=== PATIENT | female | born 1995 | race African-American/Black ===

== ENCOUNTER 2017-09-02 18:56 | Emergency (ER) | payer SELFPAY ==
[2017-09-02 19:36] LABS: Bilirubin Negative (Negative); Blood, Urine Negative (Negative); Clarity CLEAR (Clear); Glucose, Urine (Dipstick) Negative (Negative); Leukocyte Negative (Negative); Nitrite Negative (Negative); Protein, Urine (Dipstick) Negative (Neg-Trace); Specific Gravity, Urine 1.006 (1.002-1.036); Urobilinogen 0.2 mg/dL (0.2-1.0); pH, Urine 6.5 (5.0-9.0)
[2017-09-02 19:39] LABS: #Basophils 0.1 thou/uL (0.0-0.2); #Eosinphils 0.1 thou/uL (0.0-0.7); #Lymphocytes 2.1 thou/uL (1.20-3.40); #Monocytes 0.6 thou/uL (0.11-0.59); #Neutrophils 2.7 thou/uL (1.40-6.50); %Basophils 1.4 % (0.0-1.0); %Eosinophils 1.7 % (0.0-10.0); %Lymphocytes 37.7 % (28.0-48.0); %Neutrophils 49.2 % (31.0-61.0); Hemoglobin 10.6 g/dL (12.0-16.0); Mean Corpuscular HGB CONC 34.3 g/dL (32.0-36.0); Mean Corpuscular Hemoglobin 33.3 pg (25.0-35.0); Mean Corpuscular Volume 97.1 fl (77.0-87.0); Mean Platelet Volume 8.9 fL (7.4-10.4); Platelet Count 249 thou/uL (130-400); RBC Distribution Width 14.5 % (11.5-14.5); Red Blood Cell (RBC) Count 3.18 mill/uL (4.00-5.20); White Blood Cell (WBC) Count 5.5 thou/uL (4.8-10.8)
[2017-09-02 19:47] LABS: Pregnancy Test - Urine (BHCG) Negative (Negative); Pregu Control Background? CLEAR/WHITE (CLR/WHITE); Pregu Control Bar Appear? YES (CONTROL BAR); Specific Gravity 1.006 (1.002-1.036)
[2017-09-02 19:59] LABS: ALT (SGPT) 13 U/L (8-55); AST (SGOT) 16 U/L (5-34); Albumin 4.1 g/dL (3.5-5.0); Alkaline Phosphatase 85 U/L (40-150); Anion Gap 11 mmol/L (10-20); BUN (Urea Nitrogen) 16 mg/dL (7.0-18.7); Bilirubin, Total 0.4 mg/dL (0.2-1.2); Calc. Creatinine Clearance 0 mL/min (70-130); Calcium 9.5 mg/dL (7.8-10.44); Carbon Dioxide 25 mmol/L (22-29); Chloride 104 mmol/L (98-107); Estimated GFR-MDRD 81; Globulin 3.7 g/dL (2.4-3.5); Glucose 98 mg/dL (70-105); Lipase 24 U/L (8-78); Potassium 3.7 mmol/L (3.5-5.1); Protein, Total 7.8 g/dL (6.0-8.3); Sodium 136 mmol/L (136-145)
== END 2017-09-02 20:28 | disposition home or self-care (01) ==
LOC: ERS 18:56
DX: R10.9 Unspecified abdominal pain (principal)
CPT/HCPCS: 36415; 80053; 81003; 81025; 83690; 84702; 85025; 99284

== ENCOUNTER 2018-01-05 00:23 | Emergency (ER) | payer MEDICAID, SELFPAY ==
[2018-01-05 01:31] LABS: Pregnancy Test - Urine (BHCG) POSITIVE (Negative); Pregu Control Background? CLEAR/WHITE (CLR/WHITE); Pregu Control Bar Appear? YES (CONTROL BAR)
[2018-01-05 01:34] LABS: Bilirubin Negative (Negative); Blood, Urine Trace (Negative); Clarity CLOUDY (Clear); Glucose, Urine (Dipstick) Negative (Negative); Leukocyte Large (Negative); Nitrite Negative (Negative); Protein, Urine (Dipstick) Negative (Neg-Trace); Specific Gravity, Urine 1.018 (1.002-1.036); pH, Urine 6.5 (5.0-9.0)
[2018-01-05 01:35] LABS: Bacteria/HPF None Seen HPF (None Seen); Hyaline Casts/LPF 0-3 HYALINE CAST LPF (0-3 Hyaline); Pathc Cast-AUWi Flag 0.29 (0-2.49); RBC/HPF 0-3 HPF (0-3); WBC/HPF 21-50 HPF (0-3)
[2018-01-05 01:40] LABS: Specific Gravity 1.018 (1.002-1.036)
== END 2018-01-05 01:50 | disposition home or self-care (01) ==
LOC: ERS 00:23
DX: O9A.211 Injury, poisoning and certain other consequences of external causes complicating pregnancy, first trimester (principal); S30.1XXA Contusion of abdominal wall, initial encounter; O23.41 Unspecified infection of urinary tract in pregnancy, first trimester; Z3A.10 10 weeks gestation of pregnancy; W01.0XXA Fall on same level from slipping, tripping and stumbling without subsequent striking against object, initial encounter
CPT/HCPCS: 81003; 81015; 81025; 87086

== ENCOUNTER 2018-01-23 12:18 | Emergency (ER) | payer MEDICAID, OTHER ==
[2018-01-23 12:39] LABS: Bilirubin Negative (Negative); Blood, Urine Negative (Negative); Clarity CLOUDY (Clear); Glucose, Urine (Dipstick) Negative (Negative); Leukocyte Large (Negative); Nitrite Positive (Negative); Protein, Urine (Dipstick) Negative (Neg-Trace)
[2018-01-23 12:41] LABS: Bacteria/HPF None Seen HPF (None Seen); Hyaline Casts/LPF 0-3 HYALINE CAST LPF (0-3 Hyaline); Pathc Cast-AUWi Flag 0.87 (0-2.49)
--- NOTE | 2018-01-23 13:26 | ULT ---
TRANSABDOMINAL PELVIC ULTRASOUND: INDICATIONS: Pelvic pain. COMPARISON: 10/26/2016 TECHNIQUE: Villagomez-scale, color Doppler, and duplex ultrasound images were obtained of the pelvis. FINDINGS: The uterus measures 6.8 x 3.5 x 4.4 cm. The endometrial stripe measures 7 mm. The right ovary measures 2.2 x 1.8 x 1.4 cm. The left ovary measures 3 x 2.4 x 2.2 cm. There is nor mal flow to both ovaries. No free fluid is evident. IMPRESSION: No acute sonographic abnormality is seen. POS: [facility]
[2018-01-25 01:34] LABS: Chlamydia by PCR Not Detected (NotDetected); GC by PCR Not Detected (NotDetected)
== END 2018-01-23 13:41 | disposition home or self-care (01) ==
LOC: ERS 12:18
DX: O23.11 Infections of bladder in pregnancy, first trimester (principal); N30.00 Acute cystitis without hematuria; Z3A.12 12 weeks gestation of pregnancy
CPT/HCPCS: 36415; 76856; 81003; 81015; 84702; 87086; 87480; 87491; 87510; 87591; 87660; 93976

== ENCOUNTER 2018-03-07 14:12 | Emergency (ER) | payer OTHER ==
[2018-03-07 15:10] LABS: Bilirubin Negative (Negative); Blood, Urine Negative (Negative); Clarity CLOUDY (Clear); Glucose, Urine (Dipstick) Negative (Negative); Leukocyte Moderate (Negative); Nitrite Negative (Negative); Protein, Urine (Dipstick) Negative (Neg-Trace); Specific Gravity, Urine 1.024 (1.002-1.036); pH, Urine 6.5 (5.0-9.0)
[2018-03-07 15:12] LABS: Bacteria/HPF Rare-Few HPF (None Seen)
[2018-03-07 15:13] LABS: Pathc Cast-AUWi Flag 3.34 (0-2.49)
[2018-03-07 15:17] LABS: Mean Corpuscular HGB CONC 36.1 g/dL (32.0-36.0); Mean Corpuscular Hemoglobin 36.8 pg (27.0-31.0); RBC Distribution Width 13.2 % (11.5-14.5); Red Blood Cell (RBC) Count 2.72 mill/uL (4.20-5.40); White Blood Cell (WBC) Count 7.5 thou/uL (4.8-10.8)
[2018-03-07] MEDS ORDERED: Ondansetron HCl/PF 4 MG/2 ML Vial ONE (15:17)
[2018-03-07 15:19] LABS: Hyaline Casts/LPF 0-3 HYALINE CAST LPF (0-3 Hyaline); Manual Microscopic Reviewed? No Path Casts Seen; RBC/HPF 0-3 HPF (0-3)
[2018-03-07 15:33] LABS: #Eosinphils 0.1 thou/uL (0.0-0.7); #Lymphocytes 1.8 thou/uL (1.20-3.40); #Monocytes 0.5 thou/uL (0.11-0.59); %Basophils 0.6 % (0.0-1.0); %Eosinophils 1.3 % (0.0-10.0); %Lymphocytes 24.6 % (21.0-51.0); %Monocytes 6.1 % (0.0-10.0); %Neutrophils 67.5 % (42.0-75.0); PLT Morphology Comment Appears Adequate; Platelet Count 171 thou/uL (130-400)
[2018-03-07 15:41] LABS: ALT (SGPT) 13 U/L (8-55); AST (SGOT) 31 U/L (5-34); Albumin 3.8 g/dL (3.5-5.0); Alkaline Phosphatase 63 U/L (40-150); Anion Gap 15 mmol/L (10-20); BUN (Urea Nitrogen) 10 mg/dL (7.0-18.7); Bilirubin, Total 0.4 mg/dL (0.2-1.2); Calc. Creatinine Clearance 0 mL/min (70-130); Calcium 9.9 mg/dL (7.8-10.44); Carbon Dioxide 19 mmol/L (22-29); Chloride 104 mmol/L (98-107); Estimated GFR-MDRD Greater than 90; Glucose 69 mg/dL (70-105); Lipase 23 U/L (8-78); Potassium 4.7 mmol/L (3.5-5.1); Protein, Total 7.8 g/dL (6.0-8.3); Sodium 133 mmol/L (136-145)
[2018-03-07 15:50] LABS: BHCG - Serum POSITIVE (NEGATIVE); Pregs Control Background? CLEAR/WHITE (CLR/WHITE); Pregs Control Bar Appear? YES (CONTROL BAR)
--- NOTE | 2018-03-07 17:29 | ULT ---
LIMITED OB ULTRASOUND: 03/07/18 HISTORY: Abdominal pain. FINDINGS: A single live intrauterine transverse gestation is seen with measurements corresponding to an estimat ed gestational age of 18 weeks, 2 days and CHRISTOPH at 08/06/18. The estimated weight measures 242 gr ams or 9 oz. measurements are as follows: BPD 3.99 cm 18 weeks, 1 day HC 15.54 cm 18 weeks, 3 days AC 12.50 cm 18 weeks, 1 day FL 2.94 cm 18 weeks, 6 days. heart rate measures 157 beats per minute. Placenta is anteriorly located without evidence of pl acenta previa. Amniotic fluid is adequate. IMPRESSION: Single live IUP of 18 weeks, 2 days estimated gestational age and CHRISTOPH at 08/06/18. POS: [facility]
== END 2018-03-07 17:26 | disposition home or self-care (01) ==
LOC: ERS 14:12
DX: O23.42 Unspecified infection of urinary tract in pregnancy, second trimester (principal); O21.9 Vomiting of pregnancy, unspecified; Z3A.17 17 weeks gestation of pregnancy
CPT/HCPCS: 36415; 76815; 80053; 81003; 81015; 83690; 84702; 84703; 85025; 86900; 86901; 96361; 96374; J2405

== ENCOUNTER → 2018-05-02 | Day surgery (SDC) | payer OTHER ==
[2018-05-02 12:53] VITALS: BMI 27.6
--- NOTE | 2018-05-02 13:58 | PDOC.LDHP ---
Labor and Delivery H&P Chief complaint: other (Here for pink discharge after intercourse which occured last night.) HPI: -EGA = 26 weeks 3 days -Pt of Dr. Barr -EDC = August 05 23 year old AA at 26 weeks 3 days, had sex last night, now with pink discharge. No abdominal trauma, no gush of fluid, good movement. Otherwise , ROS negative. Current gestational age (weeks): 26 (3 days) Dating criteria: last menstrual period Grav: 1 Para: 0 Current complications: none Abnormal US findings: No Current medications: pre- vitamins Previous surgical history: none, other Allergies/Adverse Reactions: Allergies Allergy/AdvReac Type Severity Reaction Status Date / Time No Known Allergies Allergy Verified 05/02/18 12:50 Social history: none - Physical Exam Vital signs reviewed and normal: yes General: NAD Heart: RRR Lungs: CTAB Abdomen: gravid - Vaginal Exam cm dilated: 0 Effacement: 0% Station: -3 - Assessment Post-coital spotting at 26 weeks, primagravida - Plan Plan: observation in L&D (Sono for cervical length check, no evidence of labor. FFN not qualified as sex within 24 hours. If cervical length greater than 2.5, ok for release)
--- NOTE | 2018-05-02 15:04 | PDOC.EVN ---
Event Note - Event Note Event Note: Lab check: Cervical length returned: 3.3 cm. Although transabdominal, no evidence of funneling and closed on exam. Okay for discharge
--- NOTE | 2018-05-02 15:32 | ULT ---
LIMITED OB ULTRASOUND: 05/02/18 PROVIDED CLINICAL HISTORY: Assess cervical length. FINDINGS: Comparison 03/07/18. Limited sonographic interrogation of the region of the cervix was performed. Cervical length is appro ximately 3.3 cm. IMPRESSION: Cervical length is approximately 3.3 cm. POS: [facility]
== END ==
LOC: L&D/OP 12:07
PROVIDERS: ATTEND Obstetrics & Gynecology
DX: O26.852 Spotting complicating pregnancy, second trimester (principal); Z3A.26 26 weeks gestation of pregnancy
CPT/HCPCS: 76815

== ENCOUNTER 2018-06-17 02:05 | Day surgery (SDC) | payer OTHER ==
[2018-06-17 02:46] VITALS: BP 124/72; TEMP 98.1; BMI 28.6
--- NOTE | 2018-06-17 02:50 | PDOC.FPROB ---
FMR OB H&P: HPI - History of Present Illness Chief Complaint: abdominal pain Indentification: 23 y/o @ 32w6d by LMP History of Present Illness: Presents due to LLQ abdominal pain that started about two hours ago and is causing numbness down her L leg whenever she gets the pain. She describes it as a cramping pain that comes and goes every 45 seconds or so. She endorses some nausea yesterday and urinary urgency, but denies any dysuria, or increased urinary frequency. She denies any fevers, chills, or flank pain. She denies LOF , vaginal bleeding, vaginal d/c, ctx, and endorses good movement. She denies any h/o abdominal trauma. Primary Care Physician: Dr. Barr FMR OB H&P: Current - Care : 2 Para: 0010 Gestational age: 32w6d Due date: 08/06/18 Dating Criteria: LMP - OB Labs Blood type: O RH: positive Antibody Screen: negative HIV: negative RPR: negative HepBsAg: negative Rubella: immune Gonorrhea: negative Chlamydia: negative 1 hour gtt: 112 GBS: unknown FMR OB H&P: History - Past Medical History PMH: None - OB History OB History: Prior 1st trimester SAB - [employer] History [employer] History: No hx of STI's - Surgical History Sx History: None - Social History Social History: Denies tobacco, EtOH, or drug use - Family History Family History: None FMR OB H&P: Medications - Current Home Medications: Medication Instructions Recorded Confirmed Type Vit Calc,Iron,Folic 1 each PO DAILY 05/02/18 06/17/18 History [ Vitamins] Allergies/Adverse Reactions: Allergies Allergy/AdvReac Type Severity Reaction Status Date / Time No Known Allergies Allergy Verified 05/02/18 12:50 FMR OB H&P: ROS - Review of Systems General: denies: fever/chills, recent trauma Eyes: denies: vision changes, scotomas ENT: denies: nasal congestion, rhinorrhea, sore throat Cardiovascular: denies: chest pain, edema Gastrointestinal: reports: abdominal pain, nausea. denies: vomiting, diarrhea, constipation Genitourinary (Female): reports: hesitancy. denies: dysuria, hematuria, vaginal discharge, vaginal bleeding, contractions Musculoskeletal: reports: pain (low back pain). denies: tenderness Neurologic: reports: numbness (left leg numbness). denies: weakness Integumentary: denies: rash, lesions Psychological: denies: depression, anxiety FMR OB H&P: Vital Signs - Maternal Vital signs: Vital Signs - First Documented Temp Pulse Resp BP 98.1 F 77 16 124/72 06/17/18 02:28 06/17/18 02:28 06/17/18 02:28 06/17/18 02:28 - Heart Tones Baseline: 140 Variability: moderate Acceleration: absent Deceleration: absent Category: category 1 [place] contractions every: Scarce FMR OB H&P: Physical Exam - Physical Exam General: NAD, awake, alert and oriented HEENT: MMM, conjunctiva clear Neck: supple, FROM Heart: RRR, normal S1/S2, pulses present, no edema General: CTAB, no respiratory distress, no wheezing Abdomen: soft, gravid Deviation from normal: TTP in suprapubic and LLQ, no rebound or guarding Musculoskeletal: normal gait and station, pulses present Neurological: cranial nerves II through XII intact, sensation to pain,touch and proprioception grossly normal, no focal deficit Skin: good tugor, capillary refill <2 seconds Lymphatic: no unusual bruising or bleeding, no LAD Psychiatric: intact recent and remote memory, good judgement and insight, normal mood and affect FMR OB H&P: A/P - Problem List (1) Meralgia paresthetica of left side Current Visit: Yes Status: Acute Code(s): G57.12 - MERALGIA PARESTHETICA, LEFT LOWER LIMB Assessment and Plan: Patient wearing pants that constrict the lateral femoral cutaneous nerve on the left side. No signs of labor No signs of systemic illness -d/c home -Gave return precautions -Counseled that she can use tylenol and on wearing clothes that do not constrict that area -f/u with PCP in 3 days to monitor for improvement Disposition: d/c home Discussion: Date/Time: 06/17/18246 This H&P was discussed with Dr. Marquez who agree with the above documentation and plan. Signature: Viola Kearns MD
[2018-06-17 03:28] LABS: Bilirubin Negative (Negative); Blood, Urine Negative (Negative); Clarity CLEAR (Clear); Glucose, Urine (Dipstick) Negative (Negative); Leukocyte Moderate (Negative); Nitrite Negative (Negative); Protein, Urine (Dipstick) Negative (Neg-Trace); Specific Gravity, Urine 1.013 (1.002-1.036)
[2018-06-17 03:31] LABS: Bacteria/HPF None Seen HPF (None Seen); Hyaline Casts/LPF 0-3 HYALINE CAST LPF (0-3 Hyaline); Pathc Cast-AUWi Flag 0.43 (0-2.49); RBC/HPF 0-3 HPF (0-3)
== END 2018-06-17 03:15 | disposition home or self-care (01) ==
LOC: L&D/OP 02:05
PROVIDERS: ATTEND Obstetrics & Gynecology
DX: O99.353 Diseases of the nervous system complicating pregnancy, third trimester (principal); G57.12 Meralgia paresthetica, left lower limb; O99.89 Other specified diseases and conditions complicating pregnancy, childbirth and the puerperium; R10.32 Left lower quadrant pain; Z3A.32 32 weeks gestation of pregnancy; Z79.899 Other long term (current) drug therapy
CPT/HCPCS: 81001; 99282

== ENCOUNTER 2018-07-21 01:06 | Emergency (ER) | payer OTHER ==
[2018-07-21] MEDS ORDERED: Acetaminophen 500 MG TAB ONE (01:23)
[2018-07-21 01:52] LABS: Bilirubin Negative (Negative); Blood, Urine Negative (Negative); Clarity CLOUDY (Clear); Glucose, Urine (Dipstick) Negative (Negative); Leukocyte Moderate (Negative); Nitrite Negative (Negative); Protein, Urine (Dipstick) Negative (Neg-Trace); Specific Gravity, Urine 1.022 (1.002-1.036)
[2018-07-21 01:54] LABS: Bacteria/HPF None Seen HPF (None Seen); Pathc Cast-AUWi Flag 0.58 (0-2.49)
[2018-07-21 02:02] LABS: Crystals/HPF 1+ AMORPH PHOS HPF (Negative); Hyaline Casts/LPF NONE SEEN LPF (0-3 Hyaline); Renal Epithelial None Seen HPF (0-3); Transitional Epithelial NONE SEEN HPF (0-3)
== END 2018-07-21 03:14 | disposition home or self-care (01) ==
LOC: ERS 01:06
DX: O99.89 Other specified diseases and conditions complicating pregnancy, childbirth and the puerperium (principal); R50.9 Fever, unspecified
CPT/HCPCS: 81003; 81015; 87081; 87086; 87430; 87804; 99283

== ENCOUNTER 2018-07-31 23:48 | Inpatient (IN) | payer OTHER ==
[2018-08-01 00:02] VITALS: BMI 31.6
[2018-08-01] MEDS: Lactated Ringer's 1,000 ML IV SCH ×3 (00:10→09:53)
[2018-08-01] MEDS ORDERED: HYDROcodone/Acetaminophen 5/325 mg Tablet PO PRN ×2 (01:08)
[2018-08-01] MEDS ORDERED: Ibuprofen 800 MG TAB PO PRN (01:08)
[2018-08-01] MEDS ORDERED: Lidocaine 1% (PF) 30 ML VIAL SC PRN (01:08)
[2018-08-01] MEDS ORDERED: Acetaminophen 500 MG TAB PO PRN (01:08)
[2018-08-01] MEDS ORDERED: Meperidine HCl/PF 25 MG/ML VIAL IM/IV PRN (01:08)
[2018-08-01] MEDS ORDERED: Ondansetron PF 4 MG/2 ML Vial IVP PRN ×3 (01:08→05:57)
[2018-08-01] MEDS ORDERED: Promethazine HCl 25 MG/ML VIAL IM PRN ×2 (01:08→03:02)
[2018-08-01] MEDS ORDERED: Butorphanol Tartrate 1 MG/ML VIAL SLOW IVP PRN (01:08)
[2018-08-01] MEDS ORDERED: NS / Oxytocin 40 units/1000ml 1,000 ML IV PRN (01:08)
--- NOTE | 2018-08-01 01:14 | PDOC.LDHP ---
Labor and Delivery H&P Chief complaint: loss of fluid HPI: 23 yo BF c/o SROM with meconium at home at 2230, now c/o UCs. Current gestational age (weeks): 39 Due date: 08/06/18 Dating criteria: last menstrual period Grav: 1 Para: 0 OB History Details: PNC with Dr. Barr, denies complications. Current complications: none Abnormal US findings: No Past Medical History: None Current medications: pre- vitamins Previous surgical history: none Allergies/Adverse Reactions: Allergies Allergy/AdvReac Type Severity Reaction Status Date / Time No Known Allergies Allergy Verified 05/02/18 12:50 Social history: none - Physical Exam Vital signs reviewed and normal: yes General: resting Lungs: nonlabored breathing Abdomen: gravid Extremeties: trace edema FHT: variable decelerations [place] contractions every: UCs q 3-5 mins. - Vaginal Exam cm dilated: 1 Effacement: 50% Station: -2 - OB Labs Blood type: O RH: positive Antibody Screen: negative HIV: negative RPR: negative HEPSAg: negative 1 hour GCT: negative GBS: negative Rubella: immune - Assessment L&D Assessment: term rupture in membranes (light mec noted, inital late appearing decels seen.) - Plan Plan: admit to L&D (IV bolus on l side, O2 by FM, and observe closely, Dr. mahan asks Hospitalist to manage.), informed consent obtained
[2018-08-01] MEDS ORDERED: NS w/ Oxytocin 10 units 500 ML IV SCH (01:15)
[2018-08-01] MEDS ORDERED: Lactated Ringer's 1,000 ML IV SCH (01:15)
[2018-08-01 01:37] LABS: Hemoglobin 11.1 g/dL (12.0-16.0); Mean Corpuscular HGB CONC 36.4 g/dL (32.0-36.0); Mean Corpuscular Hemoglobin 37.8 pg (27.0-31.0); Mean Platelet Volume 10.1 fL (7.4-10.4); Platelet Count 211 thou/uL (130-400); RBC Distribution Width 12.5 % (11.5-14.5); Red Blood Cell (RBC) Count 2.94 mill/uL (4.20-5.40); White Blood Cell (WBC) Count 8.4 thou/uL (4.8-10.8)
--- NOTE | 2018-08-01 02:06 | PDOC.EVN ---
Event Note - Event Note Event Note: Late appearing decels persist despite O2 by FM, fluid bolus and L lateral positioning. UCs q 5 mins seen. In view of decelerations in face of meconium stained fluid and remote from delivery, recommend proceeding with 1* C/s. Consent on chart.
[2018-08-01] MEDS ORDERED: Bicitra 30 ML UDCUP PO SCH (02:15)
[2018-08-01] MEDS ORDERED: CEFAZOLIN 2 GM/50 ML BAG IVPB SCH (02:15)
[2018-08-01 02:17] LABS: HBSAg Index 0.22 S/CO (0-0.99); Hep B Surf Ag Non-Reactive S/CO (NonReactive)
[2018-08-01] MEDS ORDERED: Eucerin (Mineral Oil/Petrolatum,White) 30 gm Jar TOP PRN (03:02)
[2018-08-01] MEDS ORDERED: Naloxone HCl 0.4 mg/ml Vial IVP PRN ×2 (03:02)
[2018-08-01] MEDS ORDERED: L&D-Morphine 4 MG/ML VIAL SLOW IVP PRN (03:02)
[2018-08-01] MEDS ORDERED: HYDROmorphone 2 MG/ML VIAL SLOW IVP PRN (03:02)
[2018-08-01] MEDS ORDERED: Meperidine HCl/PF 25 MG/ML VIAL SLOW IVP PRN (03:02)
[2018-08-01] MEDS ORDERED: Promethazine HCl 25 MG SUPP PR PRN (03:02)
[2018-08-01] MEDS ORDERED: Ondansetron HCl/PF 4 MG/2 ML Vial IVP PRN (03:02)
[2018-08-01] MEDS ORDERED: diphenhydrAMINE 50 MG/ML VIAL IVP PRN (03:02)
[2018-08-01] MEDS ORDERED: Ketorolac Tromethamine 30 MG/ML VIAL IVP PRN ×2 (03:02→06:42)
[2018-08-01] MEDS ORDERED: Communication Order-Pharmacy FS SCH (03:15)
[2018-08-01] MEDS ORDERED: Ketorolac Tromethamine 30 MG/ML VIAL IVP SCH (03:15)
[2018-08-01 03:28] LABS: Actual Bicarbonate (HCO3a) 25.4 mEq/L (22-28); Base Excess (BEa) -4.7 mEq/L (-2.0 to +3.0)
[2018-08-01 03:29] LABS: Actual Bicarbonate (HCO3v) 23 mEq/L (22-28); pH (Cord, venous) 7.24 (7.32-7.43)
--- NOTE | 2018-08-01 04:36 | OP ---
DATE OF PROCEDURE: 08/01/2018 PROCEDURE: Primary low segment transverse section via Pfannenstiel incision. PREOPERATIVE DIAGNOSIS: 1. A 39-nine week intrauterine . 2. Meconium-stained fluid. 3. Non-reassuring heart tones. POSTOPERATIVE DIAGNOSIS: 1. 39 week intrauterine . 2. Meconium-stained fluid. 3. Non-reassuring heart tones. FINDINGS: 1. Viable male , weight 2591 grams, vertex presentation with Apgars of 8 and 9. 2. Meconium-stained fluid. 3. Art. cord PH= 7.18 4. Normal uterus, tubes, and ovaries bilaterally. SURGEON: Gabriel Toribio MD. LOAN ASSOCIATE SURGEON: Brenton Parra DO ANESTHESIA: Spinal. ESTIMATED BLOOD LOSS: 600 mL, QBL pending. PROPHYLAXIS: Ancef 2 g prior to incision. TECHNIQUE IN DETAIL: After good spinal anesthesia was achieved, the patient was prepped and draped in usual sterile fashion in the supine position with leftward tilt. A transverse incision was made two fingerbreadths above the symphysis and the abdomen was entered in layers. The uterus was then identified and the Steffen retractor was placed. A transverse incision was made across the lower uterine segment. An entry into the uterine cavity demonstrated moderately stained meconium fluid. The fetus was found in the cephalic presentation, was delivered with fundal pressure. The nasopharynx was bulb suctioned and the remainder of the baby was then delivered. The cord was clamped and cut and the baby was taken to the team in attendance. Cord blood and cord gases were then obtained. The placenta was manually removed. The uterus was curetted with a dry lap to remove all remaining placental fragments. Closure of the uterine incision was begun using a running locking suture of Monocryl. Good hemostasis occurred with this closure. The uterus was replaced in the abdominal cavity and the pelvic gutters were cleared of all clots and debris. The retractor was then removed. The urine incision was again reviewed and was noted to be hemostatic. The omentum was straightened and the fascia was closed using two sutures of PDS brought laterally to the midline in an alternating running locking fashion. The subcutaneous tissue was thoroughly irrigated and made dry using Bovie coagulation technique. The skin was closed with metal manuelito. Sponge, lap, needle counts were correct. A pressure dressing was placed across the wound. Sponge, lap, and needle counts were correct. The patient was taken to recovery room in good condition. Job ID: [id number] [facility]
[2018-08-01] MEDS ORDERED: Lanolin Ointment 7 GM TUBE TOP PRN (05:57)
[2018-08-01] MEDS ORDERED: Acetaminophen 325 MG TAB PO PRN (05:57)
[2018-08-01] MEDS ORDERED: Adacel (T-DAP) 0.5 ML SYRINGE IM ONE (05:57)
[2018-08-01] MEDS ORDERED: Ibuprofen 800 MG TAB PO SCH (06:00)
[2018-08-01 06:14] LABS: Syphilis Antibody Nonreactive (Nonreactive); Syphilis Antibody Index 0.07 S/CO (<1.00 Non-Reactive)
[2018-08-01] MEDS: Prenatal Vitamin 1 TAB PO SCH (09:06)
[2018-08-01] MEDS: Docusate Calcium (SURFAK) 240 MG CAP PO SCH ×2 (09:06→21:38)
[2018-08-01] MEDS ORDERED: Ondansetron PF 4 MG/2 ML Vial ONE (14:19)
[2018-08-01] MEDS ORDERED: Dexamethasone 20 MG/5 ML VIAL ONE (14:19)
[2018-08-01] MEDS ORDERED: Ketorolac Tromethamine 30 MG/ML VIAL ONE (14:19)
[2018-08-01] MEDS: Ibuprofen 800 MG TAB PO SCH (21:05)
[2018-08-01] MEDS: HYDROcodone/Acetaminophen 5/325 mg Tablet PO PRN (21:06)
[2018-08-01] MEDS ORDERED: Sodium Chloride 0.9% 10 ML ONE ×2 (21:17→21:41)
[2018-08-01] MEDS: Simethicone Chewable 80 MG TAB PO PRN (21:18)
[2018-08-01] MEDS: Naloxone HCl 0.4 mg/ml Vial IV PRN ×3 (21:18→21:54)
[2018-08-02] MEDS: Lactated Ringer's 1,000 ML IV SCH ×3 (04:04→16:33)
[2018-08-02] MEDS: Ibuprofen 800 MG TAB PO SCH ×3 (05:17→21:10)
[2018-08-02] MEDS ORDERED: Ibuprofen 800 MG TAB PO SCH (06:00)
[2018-08-02] MEDS: HYDROcodone/Acetaminophen 5/325 mg Tablet PO PRN ×4 (06:06→21:10)
[2018-08-02 06:19] LABS: Mean Corpuscular HGB CONC 36.2 g/dL (32.0-36.0); Mean Corpuscular Hemoglobin 38.1 pg (27.0-31.0); Mean Platelet Volume 10.2 fL (7.4-10.4); Platelet Count 153 thou/uL (130-400); RBC Distribution Width 12.5 % (11.5-14.5); Red Blood Cell (RBC) Count 2.36 mill/uL (4.20-5.40); White Blood Cell (WBC) Count 9.7 thou/uL (4.8-10.8)
--- NOTE | 2018-08-02 08:55 | PRG ---
DATE OF SERVICE: 08/02/2018 SUBJECTIVE: The patient is postoperative day 1, status post a primary for non-reassuring heart tones. The patient reports today that she is tolerating p.o., having good pain control, decreased lochia, and is ambulating on her own and is able to void on her own. OBJECTIVE: VITAL SIGNS: Today, blood pressure is 110/57, temperature 98.2, pulse of 79, respiratory rate of 18. GENERAL: She appears to be in no acute distress. She is alert, oriented, cooperative, and pleasant to interact with. HEAD: Normocephalic, atraumatic. ABDOMEN: Appropriately tender. Incision is clean, dry, and intact with manuelito. LABORATORY DATA: Her postop hemoglobin dropped from 11.1 to 9.0, hematocrit from 30.5 to 24.9, and platelets from 211,000 to 153,000. ASSESSMENT AND PLAN: The patient is postop day 1, status post a primary for non-reassuring heart tones at term. We will continue postoperative care in the hospital for the next 1 to 2 days. Job ID: [id number]
[2018-08-02] MEDS: Docusate Calcium (SURFAK) 240 MG CAP PO SCH ×2 (09:41→21:10)
[2018-08-02] MEDS: Prenatal Vitamin 1 TAB PO SCH (09:42)
[2018-08-02] MEDS: Simethicone Chewable 80 MG TAB PO PRN (18:37)
[2018-08-02] MEDS ORDERED: HYDROcodone/Acetaminophen 5/325 mg Tablet PO PRN (22:13)
[2018-08-03] MEDS: Lactated Ringer's 1,000 ML IV SCH ×3 (01:58→13:44)
[2018-08-03] MEDS: Ibuprofen 800 MG TAB PO SCH ×3 (05:45→21:51)
--- NOTE | 2018-08-03 06:03 | PDOC.PP ---
Post Progress Note Post Day #: 2 Subjective: Doing well; Passing gas but no BM PO intake tolerated: yes Flatus: yes Ambulation: yes Vital Signs (12 hours) Temp Pulse Resp BP BP Pulse Ox 08/03/18 00:00 98.2 F 81 18 131/79 08/02/18 21:04 98.2 F 81 16 123/71 100 08/02/18 18:20 97.9 F 77 16 138/74 97 Weight Weight 184 lb - Physical Examination General: NAD Cardiovascular: no m/r/g Respiratory: clear to auscultation bilaterally Abdominal: + bowel sounds, lochia, no distention, appropriately TTP Extremities: negative homans (B) Skin: CS incision dry & intact ([place] in place) Neurological: no gross focal deficits Psychiatric: A&Ox3, normal affect Result Diagrams: 08/02/18 05:55 Additional Labs: Post Labs Blood Type O POSITIVE 08/01/18 01:25 Hep Bs Antigen Non-Reactive S/CO (NonReactive) 08/01/18 01:25 (1) delivery delivered Code(s): O82 - ENCOUNTER FOR DELIVERY WITHOUT INDICATION Status: Acute - Assessment/Plan PODs from primary CS for NRFHTs...doing well, pain well controlled...passing flatus. Plan: 1. Hct 24.9 from 25...D/W patient, ASX 2. Continue inhouse OBS today 3. Prob [facility] tomorrow and manuelito out on POD 7-10 4. Ambulate
[2018-08-03] MEDS ORDERED: Acetaminophen/Codeine 30-300mg Tablet PO PRN (06:05)
[2018-08-03] MEDS ORDERED: Bisacodyl 5 MG TAB PO PRN (06:06)
[2018-08-03] MEDS: Prenatal Vitamin 1 TAB PO SCH (09:08)
[2018-08-03] MEDS: Simethicone Chewable 80 MG TAB PO PRN ×2 (09:08→21:51)
[2018-08-03] MEDS: Docusate Calcium (SURFAK) 240 MG CAP PO SCH ×2 (09:08→21:52)
[2018-08-03] MEDS: Acetaminophen/Codeine 30-300mg Tablet PO PRN ×2 (12:14→18:44)
[2018-08-04] MEDS: Acetaminophen/Codeine 30-300mg Tablet PO PRN ×2 (00:02→04:51)
[2018-08-04] MEDS: Lactated Ringer's 1,000 ML IV SCH ×2 (04:02→08:38)
--- NOTE | 2018-08-04 07:48 | DIS ---
DATE OF ADMISSION: 08/01/2018 DATE OF DISCHARGE: 08/04/2018 ADMITTING DIAGNOSES: 1. Intrauterine at 39 weeks' gestation. 2. Rupture of membranes. DISCHARGE DIAGNOSES: 1. Intrauterine at 39 weeks' gestation. 2. Rupture of membranes. 3. Nonreassuring heart tones. PROCEDURE: Primary section. CONSULTATIONS: None. HOSPITAL COURSE: The patient is a 23-year-old G1, now P1 female, who presented to Labor and Delivery at 39 weeks' gestation with rupture of membranes. Shortly after presentation, the patient continued to show a nonreassuring heart pattern and a primary was performed. For complete details, please refer to Dr. Toribio's operative note. Her postoperative course has been uncomplicated. She is now postop day 3. She reports this morning that she is tolerating p.o., voiding on her own, having decreased lochia, and good pain control. OBJECTIVE: VITAL SIGNS: This morning, her most recent vital signs; blood pressure is 140/87, temperature 98.7, pulse of 107, respiratory rate of 20, and saturating 100% on room air. GENERAL: She appears to be in no acute distress. She is alert and oriented, cooperative and pleasant to interact with. HEENT: Head is normocephalic, atraumatic. ABDOMEN: Soft. Fundus is firm, appropriately tender her incision and is at the umbilicus. Her incision is clean, dry, and intact with mnauelito. EXTREMITIES: Nontender, nonedematous. Her hemoglobin dropped from 11.1 to 9.0, hematocrit 30.5 to 29.4, and platelets 211,000 to 153,000. The patient is being discharged to home. She has instructions to call her primary OB, Dr. Barr's office for staple removal in the next few days. She will be discharged to home with ibuprofen and Tylenol No. 3. The patient has been counseled of the effects of persistent narcotic use and counseled to take the narcotics only sparingly with ibuprofen as her mainstay. The patient has been given instructions to seek medical attention should she experience fever, increasing pain or bleeding, redness, or drainage from her incision site. The patient has indicated that she is not planning on breast-feeding and we have given her instructions to help minimize stimulation to her breast with tight-fitting bra day and night and to avoid other activities that would stimulate her breast such as the shower. Job ID: [id number]
[2018-08-04 08:18] VITALS: BP 128/80; TEMP 98.1
[2018-08-04] MEDS: Prenatal Vitamin 1 TAB PO SCH (08:36)
[2018-08-04] MEDS: Docusate Calcium (SURFAK) 240 MG CAP PO SCH (08:36)
[2018-08-04] MEDS: Ibuprofen 800 MG TAB PO SCH ×2 (08:36→12:34)
== END 2018-08-04 13:15 | disposition home or self-care (01) | DRG 788 ==
LOC: L&D/OP 23:48 → L&D 08-01 01:05 → 3SW 08-01 05:10
PROVIDERS: ADMIT Obstetrics & Gynecology; ATTEND Obstetrics & Gynecology
PROC: 10D00Z1 Extraction of Products of Conception, Low, Open Approach (ICD-10-PCS; principal; 2018-08-01)
DX: O77.0 Labor and delivery complicated by meconium in amniotic fluid (principal); Z3A.39 39 weeks gestation of pregnancy; Z37.0 Single live birth
CPT/HCPCS: 36415; 51702; 82805; 85027; 86780; 86850; 86900; 86901; 87340; 88307; 99285; J1100; J1885; J2310; J2405

== ENCOUNTER 2019-02-13 15:08 | Emergency (ER) | payer MEDICAID, OTHER ==
[2019-02-13 15:43] LABS: #Eosinphils 0.6 thou/uL (0.0-0.7); #Lymphocytes 2.1 thou/uL (1.20-3.40); #Monocytes 0.3 thou/uL (0.11-0.59); #Neutrophils 2.6 thou/uL (1.40-6.50); %Basophils 0.5 % (0.0-1.0); %Eosinophils 10.9 % (0.0-10.0); %Lymphocytes 36.6 % (21.0-51.0); %Monocytes 6.1 % (0.0-10.0); %Neutrophils 45.8 % (42.0-75.0); Hemoglobin 12.7 g/dL (12.0-16.0); Mean Corpuscular HGB CONC 35.1 g/dL (32.0-36.0); Mean Corpuscular Hemoglobin 35.7 pg (27.0-31.0); Mean Platelet Volume 9.2 fL (7.4-10.4); Platelet Count 290 thou/uL (130-400); RBC Distribution Width 13.4 % (11.5-14.5); Red Blood Cell (RBC) Count 3.57 mill/uL (4.20-5.40); White Blood Cell (WBC) Count 5.6 thou/uL (4.8-10.8)
[2019-02-13 16:08] LABS: ALT (SGPT) 10 U/L (8-55); AST (SGOT) 11 U/L (5-34); Albumin 4.5 g/dL (3.5-5.0); Alkaline Phosphatase 89 U/L (40-150); Anion Gap 13 mmol/L (10-20); BUN (Urea Nitrogen) 18 mg/dL (7.0-18.7); Bilirubin, Total 0.8 mg/dL (0.2-1.2); Calc. Creatinine Clearance 0 mL/min (70-130); Calcium 10.3 mg/dL (7.8-10.44); Carbon Dioxide 26 mmol/L (22-29); Chloride 103 mmol/L (98-107); Estimated GFR-MDRD 73; Globulin 3.2 g/dL (2.4-3.5); Glucose 93 mg/dL (70-105); Potassium 4.5 mmol/L (3.5-5.1); Protein, Total 7.7 g/dL (6.0-8.3); Sodium 137 mmol/L (136-145)
[2019-02-13] MEDS ORDERED: Ondansetron ODT 8 MG TAB ONE (17:39)
[2019-02-13] MEDS ORDERED: Ketorolac Tromethamine 60 MG/2 ML VIAL ONE (17:39)
[2019-02-13 18:31] LABS: Bacteria/HPF None Seen HPF (None Seen); Bilirubin Negative (Negative); Blood, Urine Negative (Negative); Clarity Clear (Clear); Glucose, Urine (Dipstick) Normal (Negative); Leukocyte 75 Leu/uL (Negative); Mucous/LPF Rare LPF (<2+); Nitrite Negative (Negative); Protein, Urine (Dipstick) Negative (Neg-Trace); RBC/HPF 0-3 HPF (0-3); Urobilinogen Normal mg/dL (Less than 2)
[2019-02-13 18:32] LABS: Pregnancy Test - Urine (BHCG) Negative (Negative); Pregu Control Background? CLEAR/WHITE (CLR/WHITE); Pregu Control Bar Appear? YES (CONTROL BAR); Specific Gravity 1.026 (1.002-1.036)
== END 2019-02-13 18:49 | disposition home or self-care (01) ==
LOC: ERS 15:08
DX: N39.0 Urinary tract infection, site not specified (principal)
CPT/HCPCS: 36415; 80053; 81003; 81015; 81025; 85025; 96372; 99284; J1885

== ENCOUNTER 2019-12-18 00:22 | Emergency (ER) | payer SELFPAY ==
[2019-12-18] MEDS ORDERED: Metoclopramide HCl 10 MG/2 ML VIAL ONE (00:54)
[2019-12-18] MEDS ORDERED: Ketorolac Tromethamine 30 MG/ML VIAL ONE (00:54)
[2019-12-18] MEDS ORDERED: diphenhydrAMINE 50 MG/ML VIAL ONE (00:54)
== END 2019-12-18 02:24 | disposition home or self-care (01) ==
LOC: ERS 00:22
DX: G43.909 Migraine, unspecified, not intractable, without status migrainosus (principal)
CPT/HCPCS: 96365; 96375; J1200; J1885; J2765

== ENCOUNTER 2023-08-01 19:53 | Emergency (ER) | payer SELFPAY | END 2023-08-01 20:13 | disposition home or self-care (01) | LOC: ERS 19:53 | DX: B34.9 Viral infection, unspecified (principal) | CPT/HCPCS: 99283 ==

== ENCOUNTER 2023-12-06 11:55 | Emergency (ER) | payer MEDICAID ==
[2023-12-06] MEDS ORDERED: Ondansetron PF 4 MG/2 ML Vial ONE ×2 (12:05→12:23)
[2023-12-06 13:11] LABS: #Basophils Less than 0.03 10x3/uL (0.0-0.2); %Basophils 0.2 % (0.0-1.0); %Monocytes 5.5 % (0.0-10.0); %Neutrophils 82.6 % (42.0-75.0); Hematocrit 25.6 % (36.0-47.0); Hemoglobin 8.9 g/dL (12.0-16.0); Mean Corpuscular HGB CONC 34.8 g/dL (32.0-36.0); Mean Corpuscular Hemoglobin 35.5 pg (27.0-31.0); Mean Platelet Volume 11.6 fL (7.4-10.4); Platelet Count 212 10x3/uL (130-400); RBC Distribution Width 13.4 % (11.5-14.5); Red Blood Cell (RBC) Count 2.51 mill/uL (4.20-5.40)
[2023-12-06 13:39] LABS: ALT (SGPT) 34 U/L (8-55); AST (SGOT) 25 U/L (5-34); Alkaline Phosphatase 57 U/L (40-110); Anion Gap 11 mmol/L (10-20); BUN (Urea Nitrogen) 12 mg/dL (7.0-18.7); Bilirubin, Total 0.3 mg/dL (0.2-1.2); Calc. Creatinine Clearance 0 mL/min (70-130); Calcium 8.6 mg/dL (7.8-10.44); Carbon Dioxide 20 mmol/L (22-29); Chloride 108 mmol/L (98-107); Estimated GFR 109; Globulin 3.5 g/dL (2.4-3.5); Glucose 84 mg/dL (70-105); Magnesium 1.6 mg/dL (1.6-2.6); Protein, Total 6.5 g/dL (6.0-8.3); Sodium 135 mmol/L (136-145)
[2023-12-06] MEDS ORDERED: Morphine 4 MG/ML VIAL ONE (13:41)
[2023-12-06 14:32] LABS: Bilirubin Negative (Negative); Blood, Urine 3+ (Negative); CAUTI Indications for Culture Pelvic or flank pain; Glucose, Urine (Dipstick) Normal (Negative); Ketone, Urine 10 mg/dL (Negative); Leukocyte 75 Leu/uL (Negative); Nitrite Negative (Negative); Protein, Urine (Dipstick) 10 mg/dL (Neg-Trace); RBC/HPF Greater than 50 HPF (0-3); Urobilinogen Normal mg/dL (Less than 2); WBC/HPF Greater than 50 HPF (0-3); pH, Urine 6.5 (5.0-9.0)
[2023-12-06 14:42] LABS: Bacteria/HPF 1+ HPF (None Seen); Clarity Cloudy (Clear)
[2023-12-06 14:44] LABS: Urine Culture Reflex Yes Yes
[2023-12-06] MEDS ORDERED: Sodium Chloride 0.9% 100 ML ONE (15:27)
[2023-12-06] MEDS ORDERED: cefTRIAXone (ROCEPHIN) 2 GM VIAL ONE (15:27)
[2023-12-06] MEDS ORDERED: Acetaminophen 500 MG TAB ONE (15:27)
== END 2023-12-06 17:23 | disposition home or self-care (01) ==
LOC: ERS 11:55
DX: N39.0 Urinary tract infection, site not specified (principal); E87.20 Acidosis, unspecified
CPT/HCPCS: 36415; 76705; 80053; 81001; 83605; 83735; 85025; 87086; 96361; 96365; 96366; 96375; J0696; J2270; J2405; J3490

== ENCOUNTER 2024-01-25 13:38 | Emergency (ER) | payer MEDICAID ==
[2024-01-25] MEDS ORDERED: Ondansetron PF 4 MG/2 ML Vial ONE (14:59)
[2024-01-25 15:16] LABS: #Basophils Less than 0.03 10x3/uL (0.0-0.2); %Basophils 0.3 % (0.0-1.0); %Eosinophils 3.6 % (0.0-10.0); %Lymphocytes 21.4 % (21.0-51.0); %Neutrophils 66.2 % (42.0-75.0); Hematocrit 25.6 % (36.0-47.0); Hemoglobin 9.5 g/dL (12.0-16.0); Mean Corpuscular HGB CONC 37.1 g/dL (32.0-36.0); Mean Corpuscular Hemoglobin 38.5 pg (27.0-31.0); Mean Corpuscular Volume 103.6 fL (78.0-98.0); Mean Platelet Volume 12.1 fL (7.4-10.4); Platelet Count 205 10x3/uL (130-400); RBC Distribution Width 13.9 % (11.5-14.5); Red Blood Cell (RBC) Count 2.47 mill/uL (4.20-5.40)
[2024-01-25 15:32] LABS: ALT (SGPT) 12 U/L (8-55); AST (SGOT) 13 U/L (5-34); Albumin 2.8 g/dL (3.5-5.0); Alkaline Phosphatase 70 U/L (40-110); Anion Gap 13 mmol/L (10-20); BUN (Urea Nitrogen) 12 mg/dL (7.0-18.7); Bilirubin, Total 0.2 mg/dL (0.2-1.2); Calc. Creatinine Clearance 0 mL/min (70-130); Calcium 9.6 mg/dL (7.8-10.44); Carbon Dioxide 19 mmol/L (22-29); Chloride 109 mmol/L (98-107); Estimated GFR 104; Globulin 3.8 g/dL (2.4-3.5); Glucose 101 mg/dL (70-105); Lipase 20 U/L (8-78); Protein, Total 6.6 g/dL (6.0-8.3); Sodium 137 mmol/L (136-145)
[2024-01-25 17:39] LABS: Influenza A by NAA Not Detected (NotDetected); Influenza B by NAA Not Detected (NotDetected); SARS-CoV-2 NAA Rapid Test Not Detected (NotDetected)
== END 2024-01-25 16:38 | disposition home or self-care (01) ==
LOC: ERS 13:38
DX: E86.0 Dehydration (principal)
CPT/HCPCS: 80053; 83605; 83690; 85025; 96374; J2405

== ENCOUNTER 2024-05-19 18:50 | Emergency (ER) | payer BC, OTHER ==
[2024-05-19 19:22] LABS: #Basophils 0.03 10x3/uL (0.0-0.2); %Basophils 0.5 % (0.0-1.0); %Eosinophils 2.6 % (0.0-10.0); %Monocytes 6.9 % (0.0-10.0); %Neutrophils 50.1 % (42.0-75.0); Hematocrit 30.6 % (36.0-47.0); Hemoglobin 10.3 g/dL (12.0-16.0); Mean Corpuscular HGB CONC 33.7 g/dL (32.0-36.0); Mean Corpuscular Hemoglobin 35.3 pg (27.0-31.0); Mean Corpuscular Volume 104.8 fL (78.0-98.0); Mean Platelet Volume 10.2 fL (7.4-10.4); Platelet Count 383 10x3/uL (130-400); RBC Distribution Width 15.2 % (11.5-14.5); Red Blood Cell (RBC) Count 2.92 mill/uL (4.20-5.40)
[2024-05-19 19:39] LABS: ALT (SGPT) 24 U/L (8-55); AST (SGOT) 22 U/L (5-34); Albumin 3.4 g/dL (3.5-5.0); Alkaline Phosphatase 137 U/L (40-110); Anion Gap 14 mmol/L (10-20); BUN (Urea Nitrogen) 20 mg/dL (7.0-18.7); Bilirubin, Total 0.3 mg/dL (0.2-1.2); Calc. Creatinine Clearance 0 mL/min (70-130); Calcium 9.2 mg/dL (7.8-10.44); Carbon Dioxide 22 mmol/L (22-29); Chloride 107 mmol/L (98-107); Estimated GFR 75; Globulin 3.7 g/dL (2.4-3.5); Glucose 94 mg/dL (70-105); Potassium 4.4 mmol/L (3.5-5.1); Protein, Total 7.1 g/dL (6.0-8.3); Sodium 139 mmol/L (136-145)
== END 2024-05-19 19:55 | disposition home or self-care (01) ==
LOC: ERS 18:50
DX: O90.89 Other complications of the puerperium, not elsewhere classified (principal)
CPT/HCPCS: 36415; 80053; 85025; 99283

== ENCOUNTER 2024-07-07 15:39 | Emergency (ER) | payer BC, OTHER ==
[2024-07-07 16:16] LABS: #Basophils Less than 0.03 10x3/uL (0.0-0.2); %Basophils 0.3 % (0.0-1.0); %Eosinophils 2.2 % (0.0-10.0); %Lymphocytes 38.3 % (21.0-51.0); %Monocytes 6.2 % (0.0-10.0); %Neutrophils 52.9 % (42.0-75.0); Hematocrit 36.5 % (36.0-47.0); Hemoglobin 13.1 g/dL (12.0-16.0); Mean Corpuscular HGB CONC 35.9 g/dL (32.0-36.0); Mean Corpuscular Hemoglobin 34.5 pg (27.0-31.0); Mean Corpuscular Volume 96.1 fL (78.0-98.0); Mean Platelet Volume 11.4 fL (7.4-10.4); Platelet Count 326 10x3/uL (130-400); RBC Distribution Width 13.1 % (11.5-14.5)
[2024-07-07] MEDS ORDERED: Labetalol HCl 100 MG/20 ML VIAL ONE (16:21)
[2024-07-07 16:27] LABS: Bacteria/HPF None Seen HPF (None Seen); Bilirubin Negative (Negative); Blood, Urine Negative (Negative); CAUTI Indications for Culture Dysuria,urgency,freq; Clarity Clear (Clear); Glucose, Urine (Dipstick) Normal (Negative); Ketone, Urine Negative (Negative); Leukocyte Negative Leu/uL (Negative); Nitrite Negative (Negative); Protein, Urine (Dipstick) Negative (Neg-Trace); RBC/HPF 0-3 HPF (0-3); Specific Gravity, Urine 1.015 (1.002-1.036); Urobilinogen Normal mg/dL (Less than 2); WBC/HPF 0-3 HPF (0-3)
[2024-07-07 16:28] LABS: Urine Culture Reflex No No
[2024-07-07 16:36] LABS: ALT (SGPT) 14 U/L (8-55); AST (SGOT) 13 U/L (5-34); Albumin 4.2 g/dL (3.5-5.0); Alkaline Phosphatase 114 U/L (40-110); Anion Gap 14 mmol/L (10-20); BUN (Urea Nitrogen) 17 mg/dL (7.0-18.7); Bilirubin, Total 0.3 mg/dL (0.2-1.2); CK (CPK) 161 U/L (29-168); Calc. Creatinine Clearance 0 mL/min (70-130); Calcium 9.6 mg/dL (7.8-10.44); Carbon Dioxide 22 mmol/L (22-29); Chloride 103 mmol/L (98-107); Estimated GFR 86; Globulin 3.9 g/dL (2.4-3.5); Glucose 98 mg/dL (70-105); Protein, Total 8.1 g/dL (6.0-8.3); Sodium 135 mmol/L (136-145)
[2024-07-07 16:39] LABS: Troponin I Less than 0.010 ng/mL (< 0.028)
== END 2024-07-07 17:30 | disposition home or self-care (01) ==
LOC: ERS 15:39
DX: I10 Essential (primary) hypertension (principal); R51.9 Headache, unspecified
CPT/HCPCS: 70450; 80053; 81001; 82550; 84484; 85025; 85379; 93005; 96374